=== PATIENT | female | born 2000 | race Hispanic/Latino ===

== ENCOUNTER 2020-07-09 10:53 | Emergency (ER) | payer OTHER, SELFPAY ==
[2020-07-09 12:23] LABS: Urine Blood 3+ (Negative); Urine Glucose Negative (Negative); Urine Protein Negative (Negative); Urine Specific Gravity 1.015 (1.005-1.030); Urine pH 8.5 (5.0-7.0)
[2020-07-09 12:52] LABS: Urine Bacteria <20 /HPF (<20); Urine RBC <5 /HPF (NONE SEEN); Urine Yeast PRESENT (NONE SEEN)
[2020-07-09 12:55] LABS: Absolute Lymphocytes (CBC) 1.5 K/uL (0.7-4.9); Basophils % 0.6 % (0-1.3); Hematocrit 39.9 % (36.0-45.0); Lymphocytes % 17.3 % (15.3-44.8); MPV 9.2 fL (7.6-11.3); RBC Red Blood Cell Count 4.45 M/uL (3.86-4.86)
[2020-07-09 13:01] LABS: BUN Blood Urea Nitrogen 7 mg/dL (7-18); Bicarbonate 24 mmol/L (21-32); Glucose Level 85 mg/dL (74-106); HCG, Quantitative 746 mIU/mL (1-3); Potassium 3.7 mmol/L (3.5-5.1); Sodium Level 138 mmol/L (136-145)
[2020-07-09 14:18] LABS: Urine Specific Gravity/Preg 1.015 (1.005-1.030)
[2020-07-09] MEDS ORDERED: FLUCONAZOLE 100 MG TAB ONE (14:55)
--- NOTE | 2020-07-09 15:45 | ER ---
Nurse's Notes [facility] Name: Jessy Bhatt Age: 20 yrs Sex: Female : 2000 Arrival Date: 07/09/2020 Time: 10:56 Bed 23 Private MD: Diagnosis: Threatened ;Candidiasis of vulva and vagina Presentation: 07/09 11:05 Chief complaint: Patient states: "I found out last week that I was and ss yesterday I had a blood test and they told me I was for sure , but this morning I went to the bathroom and wiped and noticed I was bleeding.". Coronavirus screen: Client denies travel out of the [place] in the last 14 days. Ebola Screen: Patient denies exposure to infectious person. Patient denies travel to an Ebola-affected area in the 21 days before illness onset. Initial Sepsis Screen: Does the patient meet any 2 criteria? No. Patient's initial sepsis screen is negative. Does the patient have a suspected source of infection? No. Patient's initial sepsis screen is negative. Risk Assessment: Do you want to hurt yourself or someone else? Patient reports no desire to harm self or others. Onset of symptoms was July 09, 2020. 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 - Social history:: Smoking status: Patient denies any tobacco usage or history of. Screenin:25 Abuse screen: Denies threats or abuse. Nutritional screening: No deficits noted. vg1 Tuberculosis screening: No symptoms or risk factors identified. Fall Risk No fall in past 12 months (0 pts). No secondary diagnosis (0 pts). IV access (20 points). Ambulatory Aid- None/Bed Rest/Nurse Assist (0 pts). Gait- Normal/Bed Rest/Wheelchair (0 pts) Mental Status- Oriented to own ability (0 pts). Total Durán Fall Scale indicates No Risk (0-24 pts). Assessment: 12:23 General: Appears in no apparent distress. comfortable, Behavior is calm, cooperative, vg1 crying. Pain: Complains of pain in right lower quadrant and left lower quadrant Pain currently is 5 out of 10 on a pain scale. Pain began this morning. Neuro: Level of Consciousness is awake, alert, obeys commands, Oriented to person, place, time, situation. Cardiovascular: Patient's skin is warm and dry. Respiratory: Airway is patent Respiratory effort is even, unlabored. GI: Patient currently denies diarrhea, nausea, vomiting. : No signs and/or symptoms were reported regarding the genitourinary system. EENT: No signs and/or symptoms were reported regarding the EENT system. Derm: Skin is intact, is healthy with good turgor. Musculoskeletal: Circulation, motion, and sensation intact. 13:30 Reassessment: Patient appears in no apparent distress at this time. No changes from vg1 previously documented assessment. Patient and/or family updated on plan of care and expected duration. Pain level reassessed. Patient is alert, oriented x 3, equal unlabored respirations, skin warm/dry/pink. 15:20 Reassessment: Patient appears in no apparent distress at this time. Patient and/or vg1 family updated on plan of care and expected duration. Pain level reassessed. Patient is alert, oriented x 3, equal unlabored respirations, skin warm/dry/pink. Vital Signs: 11:05 BP 115 / 76; Pulse 91; Resp 16; Temp 99.1(TE); Pulse Ox 100% on R/A; Weight 54.88 kg; Height 5 ft. 3 in. (160.02 cm); Pain 0/10; 12:25 BP 118 / 77; Pulse 90; Resp 18; Pulse Ox 100% on R/A; vg1 13:30 BP 115 / 69; Pulse 85; Resp 16; Pulse Ox 100% on R/A; vg1 14:43 BP 114 / 68; ss 15:00 BP 123 / 68; Pulse 83; Resp 14; Pulse Ox 100% on R/A; vg1 11:05 Body Mass Index 21.43 (54.88 kg, 160.02 cm) ED Course: 10:56 Patient arrived in ED. mr 11:09 Triage completed. ss 11:09 Arm band placed on right wrist. ss 12:08 Loyda Damon, JENY is Primary Nurse. vg1 12:17 Jono Moreno NP is PHCP. pm1 12:17 Lorne De La Vega MD is Attending Physician. pm1 12:25 Patient has correct armband on for positive identification. Placed in gown. Bed in low vg1 position. Call light in reach. Side rails up X 1. Adult w/ patient. 12:36 Inserted saline lock: 20 gauge in right antecubital area, using aseptic technique. wy Blood collected. 14:20 Assist provider with pelvic exam: Set up pelvic tray. Performed by Lorne De La Vega MD Specimens vg1 sent to lab. Patient tolerated well. 16:00 IV discontinued, intact, bleeding controlled, No redness/swelling at site. Pressure vg1 dressing applied. Administered Medications: 14:43 Drug: DiFLUcan (fluconazole) 150 mg Route: PO; vg1 15:59 Follow up: Response: No adverse reaction vg1 15:57 Not Given (Patient Refused): Rocephin (cefTRIAXone) 250 mg IM once vg1 15:59 Not Given (Patient Refused): Zithromax (azithromycin) 1 grams PO once vg1 Outcome: 15:44 Discharge ordered by MD. pm1 15:59 Discharged to home ambulatory. vg1 15:59 Condition: stable 15:59 Discharge instructions given to patient, Instructed on discharge instructions, follow up and referral plans. Demonstrated understanding of instructions, follow-up care. 16:00 Patient left the ED. vg1 Addendum: 07/11/2020 10:34 Addendum: Culture Results: Positive urine culture. Patient was not prescribed a a5 antibiotics at discharge. Report given to FRACISCO for further evaluation and then to business office manager for follow up with patient. Prescription called-in to pharmacy of choice. to [facility] in [place], [place]. Called in Augmentin per [facility]. Signatures: Haylie Horvath mr CoxAure, RN RN aa5 Angie Pettit RN RN Jnoo Moreno NP INSTRUMENT MAINTENANCE SUPERVISOR pm1 Rica Louis wy Loyda Damon, JENY RN vg1
--- NOTE | 2020-07-09 15:45 | EDPHYS ---
Physician Documentation [facility] Name: Jessy Bhatt Age: 20 yrs Sex: Female : 2000 Arrival Date: 07/09/2020 Time: 10:56 Bed 23 Private MD: ED Physician Lorne De La Vega HPI: 07/09 12:19 This 20 yrs old Female presents to ER via Ambulatory with complaints of pm1 Vaginal Bleeding, + Preg <12wks. 12:19 The patient presents to the emergency department with vaginal bleeding, that is light. pm1 The estimated gestational age is 4 weeks. course: care: private OB physician, Leakage of Fluid: none appreciated, Ultrasound: the patient has not had an ultrasound, Risk/complications: no obvious risks or complications are appreciated. Previous pregnancies: the patient has never been . Associated signs and symptoms: Pertinent positives: abdominal pain, suprapubic area. Burning with urination. Vaginal itching, Pertinent negatives: chest pain, diarrhea, fever, nausea, shortness of breath, vomiting. The patient has not experienced similar symptoms in the past. last week positive home test. Tested positive yesterday by blood. . 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 - Social history:: Smoking status: Patient denies any tobacco usage or history of. ROS: 12:19 Constitutional: Negative for fever, chills, and weight loss, Cardiovascular: Negative pm1 for chest pain, palpitations, and edema, Respiratory: Negative for shortness of breath, cough, wheezing, and pleuritic chest pain, Abdomen/GI: Negative for abdominal pain, nausea, vomiting, diarrhea, and constipation, Back: Negative for injury and pain. 12:19 MS/Extremity: Negative for injury and deformity, Skin: Negative for injury, rash, and discoloration, Neuro: Negative for headache, weakness, numbness, tingling, and seizure. 12:19 : Positive for burning with urination, vaginal bleeding, vaginal itching, Negative for flank pain. Exam: 12:19 Constitutional: This is a well developed, well nourished patient who is awake, alert, pm1 and in no acute distress. Head/Face: Normocephalic, atraumatic. 12:19 Back: No spinal tenderness. No costovertebral tenderness. Full range of motion. Skin: Warm, dry with normal turgor. Normal color with no rashes, no lesions, and no evidence of cellulitis. MS/ Extremity: Pulses equal, no cyanosis. Neurovascular intact. Full, normal range of motion. 12:19 Cardiovascular: Exam negative for acute changes, Rate: normal, Rhythm: regular, Pulses: no pulse deficits are appreciated, Edema: is not appreciated. 12:19 Respiratory: Exam negative for acute changes, respiratory distress, shortness of breath. 12:19 Abdomen/GI: Inspection: abdomen appears normal, Palpation: abdomen is soft and non-tender, in all quadrants. 12:19 Neuro: Exam negative for acute changes, Orientation: is normal, Mentation: is normal, Motor: is normal, moves all fours, Gait: is steady, at a normal pace, without difficulty. 14:22 : Pelvic Exam: External exam: is normal, Speculum exam: scant bleeding, no pm1 cervicitis, os that is closed, no tissue in cervix is seen, no tissue in vagina is seen, bimanual exam reveals no cervical motion tenderness, os that is closed, no uterine tenderness, no adnexa tenderness or masses bilaterally, Jenna FERMIN fashion director party plan sales. Sexual behavior: the patient is sexually active. Vital Signs: 11:05 BP 115 / 76; Pulse 91; Resp 16; Temp 99.1(TE); Pulse Ox 100% on R/A; Weight 54.88 kg; ss Height 5 ft. 3 in. (160.02 cm); Pain 0/10; 12:25 BP 118 / 77; Pulse 90; Resp 18; Pulse Ox 100% on R/A; vg1 13:30 BP 115 / 69; Pulse 85; Resp 16; Pulse Ox 100% on R/A; vg1 14:43 BP 114 / 68; ss 15:00 BP 123 / 68; Pulse 83; Resp 14; Pulse Ox 100% on R/A; vg1 11:05 Body Mass Index 21.43 (54.88 kg, 160.02 cm) ss MDM: 12:18 Patient medically screened. pm1 14:29 Data reviewed: vital signs. Data interpreted: Pulse oximetry: on room air is 100 %. pm1 Interpretation: normal. 15:42 Counseling: I had a detailed discussion with the patient and/or guardian regarding: the pm1 historical points, exam findings, and any diagnostic results supporting the discharge/admit diagnosis, lab results, the need for outpatient follow up, an OB/Gyne specialist, pending gc test but patient has been treated. Educated on pelvic rest and possible treatment for boyfriend. 07/09 12:17 Order name: Quantitative Hcg; Complete Time: 13:17 pm07/09 12:17 Order name: Abo/rh Typing; Complete Time: 14:24 pm07/09 12:17 Order name: Basic Metabolic Panel; Complete Time: 13:17 pm07/09 12:17 Order name: CBC with Diff; Complete Time: 13:17 pm07/09 12:17 Order name: Urine Microscopic Only; Complete Time: 13:17 pm07/09 12:23 Order name: Urine Dipstick-Ancillary; Complete Time: 12:26 EDSC 07/09 12:32 Order name: Urine --Ancillary (enter results); Complete Time: 14:24 eb 07/09 12:52 Order name: Urine Culture [facility] 07/09 14:28 Order name: Wet Prep; Complete Time: 15:23 pm07/09 15:52 Order name: GC (Teofilo/Chl) Probe CX/URE [facility] 07/09 12:17 Order name: Urine Test (obtain specimen); Complete Time: 12:37 pm07/09 12:17 Order name: IV Saline Lock; Complete Time: 12:37 pm07/09 12:17 Order name: Labs collected and sent; Complete Time: 12:37 pm07/09 12:17 Order name: NPO; Complete Time: 12:37 pm07/09 12:17 Order name: Urine Dipstick-Ancillary (obtain specimen); Complete Time: 12:37 pm07/09 13:28 Order name: Pelvic Exam Setup; Complete Time: 13:30 pm1 Administered Medications: 14:43 Drug: DiFLUcan (fluconazole) 150 mg Route: PO; vg1 15:59 Follow up: Response: No adverse reaction vg1 15:57 Not Given (Patient Refused): Rocephin (cefTRIAXone) 250 mg IM once vg1 15:59 Not Given (Patient Refused): Zithromax (azithromycin) 1 grams PO once vg1 Disposition: 17:20 Co-signature as Attending Physician, Lorne De La Vega MD. pk Disposition: 07/09/20 15:44 Discharged to Home. Impression: Threatened , Candidiasis of vulva and vagina. - Condition is Stable. - Discharge Instructions: Threatened Miscarriage, Vaginal Yeast Infection, Adult, Pelvic Rest. - Medication Reconciliation Form, Thank You Letter, Antibiotic Education, Prescription Opioid Use form. - Follow up: Emergency Department; When: As needed; Reason: Worsening of condition. Follow up: Private Physician; When: 2 - 3 days; Reason: Recheck today's complaints, Continuance of care, Re-evaluation by your physician. - Problem is new. - Symptoms have improved. Signatures: Dispatcher [employer] EDMS Lorne De La Vega MD MD [facility] Angie Pettit RN RN ss Jono Moreno, OPHELIA WATCH AND CLOCK REPAIRER pm1 Loyda Damon RN RN vg1 Corrections: (The following items were deleted from the chart) 15:11 14:30 GC (Gonorr/Clamydia) Probe+R.LAB.BRZ ordered. EDMS EDMS 15:52 14:53 GC (Teofilo/Chl) Probe URINE ordered. EDMS EDMS 16:00 15:44 07/09/2020 15:44 Discharged to Home. Impression: Threatened ; Candidiasis vg1 of vulva and vagina. Condition is Stable. Discharge Instructions: Threatened Miscarriage, Vaginal Yeast Infection, Adult, Pelvic Rest. Forms are Medication Reconciliation Form, Thank You Letter, Antibiotic Education, Prescription Opioid Use. Follow up: Emergency Department; When: As needed; Reason: Worsening of condition. Follow up: Private Physician; When: 2 - 3 days; Reason: Recheck today's complaints, Continuance of care, Re-evaluation by your physician. Problem is new. Symptoms have improved. pm1
[2020-07-09 16:10] VITALS: TEMP 99.1; O2SAT 100
[2020-07-09 16:24] VITALS: BP 123/68
[2020-07-12 03:19] LABS: C.trachomatis RNA,TMA Not Detected (Not Detected)
== END 2020-07-09 16:00 | disposition home or self-care (01) ==
LOC: ER 10:53
DX: O20.0 Threatened abortion (principal); O98.811 Other maternal infectious and parasitic diseases complicating pregnancy, first trimester; B37.3 Candidiasis of vulva and vagina; Z3A.01 Less than 8 weeks gestation of pregnancy
CPT/HCPCS: 36415; 80048; 81003; 81015; 81025; 84702; 85025; 86900; 86901; 87077; 87086; 87088; 87186; 87210; 87490; 87590; 99284